=== PATIENT | female | born 1950 | race African-American/Black ===

== ENCOUNTER 2018-03-15 08:34 | Emergency (ER) | payer MEDICARE ==
[2018-03-15] MEDS ORDERED: Water For Inject, Bacteriostat 30 ML ONE (10:06)
[2018-03-15] MEDS ORDERED: Famotidine 20 MG TAB ONE (10:06)
[2018-03-15] MEDS ORDERED: methylPREDNISolone Sod Succ/PF 125 MG/2 ML VIAL ONE (10:06)
== END 2018-03-15 14:00 | disposition home or self-care (01) ==
LOC: ERS 08:34
DX: T78.40XA Allergy, unspecified, initial encounter (principal); I10 Essential (primary) hypertension; E78.5 Hyperlipidemia, unspecified; Z79.899 Other long term (current) drug therapy
CPT/HCPCS: 96374; J2930